=== PATIENT | male | born 1995 | race Caucasian/White ===

== ENCOUNTER 2016-12-12 10:45 | Emergency (ER) | payer OTHER ==
[~2016-12-12 10:45] MED LIST: LEVO200T4 PO; NORCOTAB PO; PERCOCET PO; VITA-112 PO; insulin pump
[2016-12-12] MEDS ORDERED: NAPROXEN 250 MG TAB As Ordered ONE (11:53)
--- NOTE | 2016-12-12 13:38 | EDDOCDS ---
Nurse's Notes [facility] Name: Miguel Felipe Age: 21 yrs Sex: Male : 1995 Arrival Date: 12/12/2016 Time: 10:45 Bed TR8 Private MD: Diagnosis: Unspecified sprain of left shoulder joint Presentation: 12/12 11:11 Presenting complaint: Patient states: Fell and injured left shoulder. Adult Sepsis rs3 Screening: The patient does not have new or worsening altered mentation. Patient's respiratory rate is less than 22. Systolic blood pressure is greater than 100. Patient has a qSOFA score of 0- Negative Sepsis Screen. Suicide/Homicide risk assessment- the patient denies having any suicidal and/or homicidal ideations and does not present with any other emotional, behavioral or mental health complaints. Status: Patient is not a vehicle service attendant or dependent. Transition of care: patient was not received from another setting of care. 11:11 Acuity: JO-ANN Level 4 rs3 11:11 Method Of Arrival: Walkin/Carried/Asstd rs3 Triage Assessment: 11:12 General: Appears in no apparent distress. Pain: Location: anterior aspect of left rs3 shoulder. HIV screening NA for this visit Offered previously. Historical: - Allergies: no known allergies; - Home Meds: 1. Novolog 100 unit/mL Sub-Q soln via insulin pump 2. levothyroxine 25 mcg Oral tab 1 tab once daily - PMHx: Diabetes - IDDM: controlled; Hypothyroidism; - PSHx: Knee surgery- Right; Ankle Surgery, Right; - Social history: Smoking status: Patient states was never smoker of tobacco. No barriers to communication noted, The patient speaks fluent Spanish. - Family history: Not pertinent. - : The pt / caregiver states he / she is not on anticoagulants. Home medication list is obtained from the patient. - Exposure Risk Screening:: None identified. Screenin:56 Screening information is obtained from the patient. Fall risk: No risks identified. jjr Assistance ADL's: requires no assistance with activities of daily living. Abuse/DV Screen: The patient / caregiver reports he/she is: not in a situation that causes fear, pain or injury. Nutritional screening: No deficits noted. Advance Directives: There is no active DNR order. home support is adequate. Assessment: 11:55 General: Appears in no apparent distress. Musculoskeletal: Reports pain in anterior jjr aspect of left shoulder. 13:23 General: Appears in no apparent distress, left shoulder pain aggravated by lifting left jjr arm, slight improvement in pain since arrival. 13:36 General: Appears in no apparent distress, comfortable, Behavior is appropriate for age, ms18 cooperative, pleasant. Pain: Pain currently is 2 out of 10 on a pain scale. Neurological: No deficits noted. Respiratory: No deficits noted. Derm: Skin is pink, warm & dry. Vital Signs: 10:46 BP 137 / 68; Pulse 88; Resp 16; Temp 96.6(O); Pulse Ox 99% on R/A; Weight 90.72 kg (R); elp Height 5 ft. 7 in. (170.18 cm) (R); Pain 7/10; 13:22 BP 132 / 77; Pulse 90; Resp 18; Temp 98.3(O); Pulse Ox 99% on R/A; Pain 5/10; jjr 10:46 Body Mass Index 31.32 (90.72 kg, 170.18 cm) [facility] Vitals: 10:46 Log In Time: December 12, 2016 at 10:40. p ED Course: 10:46 Patient visited by Destiny Beltran PCA. elp 10:46 Patient moved to Waiting elp 10:48 Patient visited by Destiny Beltran PCA. elp 10:48 Patient moved to Pre RCE elp 11:11 Triage Initiated rs3 11:12 Patient moved to Triage 3 rs3 11:42 Lillian Mckay PA-C is [facility]. ef1 11:42 Shabana Richardson MD is Attending Physician. ef1 11:42 Patient visited by Lillian Mckay PA-C. ef1 11:55 Patient moved to TR2 ms18 11:56 Patient visited by Ana Rojas RN. jjr 11:56 The patient / caregiver is instructed regarding the plan of care and ED course. jjr 12:00 [facility] Payment Agreement was scanned into [employer] and attached to record. mm15 12:35 Patient visited by Lillian Mckay PA-C. ef1 13:08 Patient visited by Lillian Mckay PA-C. ef1 13:11 Orthopaedics, [facility] is Referral Physician. ef1 13:16 Patient moved to PR1 ms18 13:23 No IV's were initiated during this patient's visit. No procedures done that require jjr assistance. 13:36 Patient moved to TR8 ms18 13:36 Patient has correct armband on for positive identification. Property sent home with ms18 patient. :Personal belongings accompany Pt. 13:36 Sling applied to right arm. Patient with positive distal sensation and brisk distal ms18 capillary refill after application. Administered Medications: 11:55 Drug: Naproxen 500 mg [naproxen 250 mg tablet (2 tabs)] Route: PO; jjr Order Results: There are currently no results for this order. Outcome: 13:11 Discharge ordered by Provider. ef1 13:23 Discharge Assessment: patient administered narcotics - no. The following High Risk jjr Discharge criteria are identified: None. Discharged to home ambulatory. Condition: stable. Discharge instructions given to patient, Instructed on discharge instructions, follow up and referral plans. medication usage, Demonstrated understanding of instructions, medications, Prescriptions given X 1. No special radiology studies were completed. Property sent home with patient. 13:37 Patient left the ED. ms18 Signatures: Ana Rojas, RN RN Lillian Mcnally, PA-C PA-C ef1 Dora Gaona RN RN rs3 Clarissa Mckee mm15 Destiny Beltran, BENJI BATCH ROLLER OPERATOR Francisca Pineda RN RN ms18 MTDD
--- NOTE | 2016-12-12 13:38 | EDDOCDS ---
Physician Documentation [facility] Name: Miguel Felipe Age: 21 yrs Sex: Male : 1995 Arrival Date: 12/12/2016 Time: 10:45 Bed TR8 Private MD: Disposition: 12/12/16 13:11 Discharged to Home/Self Care. Impression: Unspecified sprain of left shoulder joint. - Condition is Stable. - Discharge Instructions: Shoulder Sprain. - Prescriptions for Mobic 7.5 mg Oral Tablet - take 1 tablet by ORAL route once daily take with food; 20 tablet. - Medication Reconciliation, Local Pharmacy Hours, Work Release Form - 3 day form. - Follow up: [facility]; When: 1 - 2 days; Reason: Further diagnostic work-up, Recheck today's complaints, Continuance of care. Follow up: Emergency Department; Reason: Worsening of conditions. - Problem is new. - Symptoms have improved. Historical: - Allergies: no known allergies; - Home Meds: 1. Novolog 100 unit/mL Sub-Q soln via insulin pump 2. levothyroxine 25 mcg Oral tab 1 tab once daily - PMHx: Diabetes - IDDM: controlled; Hypothyroidism; - PSHx: Knee surgery- Right; Ankle Surgery, Right; - Social history: Smoking status: Patient states was never smoker of tobacco. No barriers to communication noted, The patient speaks fluent Belizean. - Family history: Not pertinent. - : The pt / caregiver states he / she is not on anticoagulants. Home medication list is obtained from the patient. - Exposure Risk Screening:: None identified. Vital Signs: 12/12 10:46 BP 137 / 68; Pulse 88; Resp 16; Temp 96.6(O); Pulse Ox 99% on R/A; Weight 90.72 kg / elp 200 lbs (R); Height 5 ft. 7 in. (170.18 cm) (R); Pain 7/10; 13:22 BP 132 / 77; Pulse 90; Resp 18; Temp 98.3(O); Pulse Ox 99% on R/A; Pain 5/10; jjr 10:46 Body Mass Index 31.32 (90.72 kg, 170.18 cm) elp Procedures: 13:08 Fracture care/splinting: Splint applied to anterior aspect of left shoulder using ef1 sling, applied by nurse. Examined by me, post splint application: neurovascular intact, 2+ distal pulses palpable, brisk capillary refill noted, Patient tolerated well. MDM: 11:51 Ice Pack ordered. ef1 11:51 Naproxen 500 mg PO once; administer with food or milk ordered. ef1 11:53 Shoulder, Complete Ordered. EDMS 11:58 Financial registration complete. mm15 12:00 [facility] Payment Agreement was scanned into [employer] and attached to record. mm15 13:08 Sling ordered. ef1 Administered Medications: 11:55 Drug: Naproxen 500 mg [naproxen 250 mg tablet (2 tabs)] Route: PO; jjr Signatures: Dispatcher [employer] EDMS Lillian Mckay PA-C PA-C ef1 Dora GaonaRN RN rs3 Clarissa Mckee mm15 Francisca Mesa RN RN ms18 Ana Rojas RN jjr The chart was reviewed and I authenticate all verbal orders and agree with the evaluation and treatment provided.Attachments: 12:00 [facility] Payment Agreement mm15 MTDD
--- NOTE | 2016-12-13 11:15 | REP ---
Left shoulder three views: There are no comparisons. The acromioclavicular glenohumeral articulations are unremarkable. Mineralization is normal. There is no fracture or dislocation. Impression: Negative left shoulder. Signed by Shadi Tate MD 12/12/2016 12:15 P
--- NOTE | 2016-12-14 14:37 | EDDOCDS ---
Physician Documentation [facility] Name: Miguel Felipe Age: 21 yrs Sex: Male : 1995 Arrival Date: 12/12/2016 Time: 10:45 Bed TR8 Private MD: Disposition: 12/12/16 13:11 Discharged to Home/Self Care. Impression: Unspecified sprain of left shoulder joint. - Condition is Stable. - Discharge Instructions: Shoulder Sprain. - Prescriptions for Mobic 7.5 mg Oral Tablet - take 1 tablet by ORAL route once daily take with food; 20 tablet. - Medication Reconciliation, Local Pharmacy Hours, Work Release Form - 3 day form. - Follow up: [facility]; When: 1 - 2 days; Reason: Further diagnostic work-up, Recheck today's complaints, Continuance of care. Follow up: Emergency Department; Reason: Worsening of conditions. - Problem is new. - Symptoms have improved. Historical: - Allergies: no known allergies; - Home Meds: 1. Novolog 100 unit/mL Sub-Q soln via insulin pump 2. levothyroxine 25 mcg Oral tab 1 tab once daily - PMHx: Diabetes - IDDM: controlled; Hypothyroidism; - PSHx: Knee surgery- Right; Ankle Surgery, Right; - Social history: Smoking status: Patient states was never smoker of tobacco. No barriers to communication noted, The patient speaks fluent Cymro. - Family history: Not pertinent. - : The pt / caregiver states he / she is not on anticoagulants. Home medication list is obtained from the patient. - Exposure Risk Screening:: None identified. Vital Signs: 12/12 10:46 BP 137 / 68; Pulse 88; Resp 16; Temp 96.6(O); Pulse Ox 99% on R/A; Weight 90.72 kg / elp 200 lbs (R); Height 5 ft. 7 in. (170.18 cm) (R); Pain 7/10; 13:22 BP 132 / 77; Pulse 90; Resp 18; Temp 98.3(O); Pulse Ox 99% on R/A; Pain 5/10; jjr 10:46 Body Mass Index 31.32 (90.72 kg, 170.18 cm) elp Procedures: 13:08 Fracture care/splinting: Splint applied to anterior aspect of left shoulder using ef1 sling, applied by nurse. Examined by me, post splint application: neurovascular intact, 2+ distal pulses palpable, brisk capillary refill noted, Patient tolerated well. MDM: 11:51 Ice Pack ordered. ef1 11:51 Naproxen 500 mg PO once; administer with food or milk ordered. ef1 11:53 Shoulder, Complete Ordered. EDMS 11:58 Financial registration complete. mm15 12:00 [facility] Payment Agreement was scanned into [employer] and attached to record. mm15 13:08 Sling ordered. ef1 21:52 T-Sheet-- Draft Copy was scanned into [employer] and attached to record. klr Administered Medications: 11:55 Drug: Naproxen 500 mg [naproxen 250 mg tablet (2 tabs)] Route: PO; jjr Signatures: Dispatcher [employer] EDMS Lillian Mckay, ANYI DE SANTIAGO ef1 Dora Gaona RN RN rs3 Clarissa Mckee mm15 Francisca Mesa RN RN ms18 Erika Flores klr Ana Rojas RN jjr The chart was reviewed and I authenticate all verbal orders and agree with the evaluation and treatment provided.Attachments: 12:00 [facility] Payment Agreement mm15 21:52 T-Sheet-- Draft Copy klr Chart Complete MTDD
--- NOTE | 2016-12-14 14:37 | EDDOCDS ---
Physician Documentation [facility] Name: Miguel Felipe Age: 21 yrs Sex: Male : 1995 Arrival Date: 12/12/2016 Time: 10:45 Bed TR8 Private MD: Disposition: 12/12/16 13:11 Discharged to Home/Self Care. Impression: Unspecified sprain of left shoulder joint. - Condition is Stable. - Discharge Instructions: Shoulder Sprain. - Prescriptions for Mobic 7.5 mg Oral Tablet - take 1 tablet by ORAL route once daily take with food; 20 tablet. - Medication Reconciliation, Local Pharmacy Hours, Work Release Form - 3 day form. - Follow up: [facility]; When: 1 - 2 days; Reason: Further diagnostic work-up, Recheck today's complaints, Continuance of care. Follow up: Emergency Department; Reason: Worsening of conditions. - Problem is new. - Symptoms have improved. Historical: - Allergies: no known allergies; - Home Meds: 1. Novolog 100 unit/mL Sub-Q soln via insulin pump 2. levothyroxine 25 mcg Oral tab 1 tab once daily - PMHx: Diabetes - IDDM: controlled; Hypothyroidism; - PSHx: Knee surgery- Right; Ankle Surgery, Right; - Social history: Smoking status: Patient states was never smoker of tobacco. No barriers to communication noted, The patient speaks fluent Argentine. - Family history: Not pertinent. - : The pt / caregiver states he / she is not on anticoagulants. Home medication list is obtained from the patient. - Exposure Risk Screening:: None identified. Vital Signs: 12/12 10:46 BP 137 / 68; Pulse 88; Resp 16; Temp 96.6(O); Pulse Ox 99% on R/A; Weight 90.72 kg / elp 200 lbs (R); Height 5 ft. 7 in. (170.18 cm) (R); Pain 7/10; 13:22 BP 132 / 77; Pulse 90; Resp 18; Temp 98.3(O); Pulse Ox 99% on R/A; Pain 5/10; jjr 10:46 Body Mass Index 31.32 (90.72 kg, 170.18 cm) elp Procedures: 13:08 Fracture care/splinting: Splint applied to anterior aspect of left shoulder using ef1 sling, applied by nurse. Examined by me, post splint application: neurovascular intact, 2+ distal pulses palpable, brisk capillary refill noted, Patient tolerated well. MDM: 11:51 Ice Pack ordered. ef1 11:51 Naproxen 500 mg PO once; administer with food or milk ordered. ef1 11:53 Shoulder, Complete Ordered. EDMS 11:58 Financial registration complete. mm15 12:00 [facility] Payment Agreement was scanned into [employer] and attached to record. mm15 13:08 Sling ordered. ef1 21:52 T-Sheet-- Draft Copy was scanned into [employer] and attached to record. klr Administered Medications: 11:55 Drug: Naproxen 500 mg [naproxen 250 mg tablet (2 tabs)] Route: PO; jjr Signatures: Dispatcher [employer] EDMS Lillian Mckay, ANYI DE SANTIAGO ef1 Dora Gaona RN RN rs3 Clarissa Mckee mm15 Francisca Mesa RN RN ms18 Erika Flores klr Ana Rojas RN jjr The chart was reviewed and I authenticate all verbal orders and agree with the evaluation and treatment provided.Attachments: 12:00 [facility] Payment Agreement mm15 21:52 T-Sheet-- Draft Copy klr Chart Complete MTDD
--- NOTE | 2016-12-14 14:37 | EDDOCDS ---
Nurse's Notes [facility] Name: Miguel Felipe Age: 21 yrs Sex: Male : 1995 Arrival Date: 12/12/2016 Time: 10:45 Bed TR8 Private MD: Diagnosis: Unspecified sprain of left shoulder joint Presentation: 12/12 11:11 Presenting complaint: Patient states: Fell and injured left shoulder. Adult Sepsis rs3 Screening: The patient does not have new or worsening altered mentation. Patient's respiratory rate is less than 22. Systolic blood pressure is greater than 100. Patient has a qSOFA score of 0- Negative Sepsis Screen. Suicide/Homicide risk assessment- the patient denies having any suicidal and/or homicidal ideations and does not present with any other emotional, behavioral or mental health complaints. Status: Patient is not a protective services social worker or dependent. Transition of care: patient was not received from another setting of care. 11:11 Acuity: JO-ANN Level 4 rs3 11:11 Method Of Arrival: Walkin/Carried/Asstd rs3 Triage Assessment: 11:12 General: Appears in no apparent distress. Pain: Location: anterior aspect of left rs3 shoulder. HIV screening NA for this visit Offered previously. Historical: - Allergies: no known allergies; - Home Meds: 1. Novolog 100 unit/mL Sub-Q soln via insulin pump 2. levothyroxine 25 mcg Oral tab 1 tab once daily - PMHx: Diabetes - IDDM: controlled; Hypothyroidism; - PSHx: Knee surgery- Right; Ankle Surgery, Right; - Social history: Smoking status: Patient states was never smoker of tobacco. No barriers to communication noted, The patient speaks fluent Indonesian. - Family history: Not pertinent. - : The pt / caregiver states he / she is not on anticoagulants. Home medication list is obtained from the patient. - Exposure Risk Screening:: None identified. Screenin:56 Screening information is obtained from the patient. Fall risk: No risks identified. jjr Assistance ADL's: requires no assistance with activities of daily living. Abuse/DV Screen: The patient / caregiver reports he/she is: not in a situation that causes fear, pain or injury. Nutritional screening: No deficits noted. Advance Directives: There is no active DNR order. home support is adequate. Assessment: 11:55 General: Appears in no apparent distress. Musculoskeletal: Reports pain in anterior jjr aspect of left shoulder. 13:23 General: Appears in no apparent distress, left shoulder pain aggravated by lifting left jjr arm, slight improvement in pain since arrival. 13:36 General: Appears in no apparent distress, comfortable, Behavior is appropriate for age, ms18 cooperative, pleasant. Pain: Pain currently is 2 out of 10 on a pain scale. Neurological: No deficits noted. Respiratory: No deficits noted. Derm: Skin is pink, warm & dry. Vital Signs: 10:46 BP 137 / 68; Pulse 88; Resp 16; Temp 96.6(O); Pulse Ox 99% on R/A; Weight 90.72 kg (R); elp Height 5 ft. 7 in. (170.18 cm) (R); Pain 7/10; 13:22 BP 132 / 77; Pulse 90; Resp 18; Temp 98.3(O); Pulse Ox 99% on R/A; Pain 5/10; jjr 10:46 Body Mass Index 31.32 (90.72 kg, 170.18 cm) [facility] Vitals: 10:46 Log In Time: December 12, 2016 at 10:40. p ED Course: 10:46 Patient visited by Destiny Beltran PCA. elp 10:46 Patient moved to Waiting elp 10:48 Patient visited by Destiny Beltran PCA. elp 10:48 Patient moved to Pre RCE elp 11:11 Triage Initiated rs3 11:12 Patient moved to Triage 3 rs3 11:42 Lillian Mckay PA-C is [facility]. ef1 11:42 Shabana Richardson MD is Attending Physician. ef1 11:42 Patient visited by Lillian Mckay PA-C. ef1 11:55 Patient moved to TR2 ms18 11:56 Patient visited by Ana Rojas RN. jjr 11:56 The patient / caregiver is instructed regarding the plan of care and ED course. jjr 12:00 [facility] Payment Agreement was scanned into [employer] and attached to record. mm15 12:35 Patient visited by Lillian Mckay PA-C. ef1 13:08 Patient visited by Lillian Mckay PA-C. ef1 13:11 Orthopaedics, [facility] is Referral Physician. ef1 13:16 Patient moved to PR1 25 ms18 13:23 No IV's were initiated during this patient's visit. No procedures done that require jjr assistance. 13:36 Patient moved to TR8 ms18 13:36 Patient has correct armband on for positive identification. Property sent home with ms18 patient. :Personal belongings accompany Pt. 13:36 Sling applied to right arm. Patient with positive distal sensation and brisk distal ms18 capillary refill after application. 21:52 T-Sheet-- Draft Copy was scanned into [employer] and attached to record. klr 12/13 11:20 Shoulder, Complete Returned. EDMS Administered Medications: 12/12 11:55 Drug: Naproxen 500 mg [naproxen 250 mg tablet (2 tabs)] Route: PO; jjr Order Results: Radiology Order: Shoulder, Complete Test: Shoulder, Complete REASON FOR EXAMINATION: Trauma; Left shoulder three views:; ; There are no comparisons.; ; The acromioclavicular glenohumeral articulations are unremarkable.; Mineralization is normal. There is no fracture or dislocation.; ; Impression:; ; Negative left shoulder.; ; ; Signed by; Shadi Tate MD 12/12/2016 12:15 P; Outcome: 13:11 Discharge ordered by Provider. ef1 13:23 Discharge Assessment: patient administered narcotics - no. The following High Risk jjr Discharge criteria are identified: None. Discharged to home ambulatory. Condition: stable. Discharge instructions given to patient, Instructed on discharge instructions, follow up and referral plans. medication usage, Demonstrated understanding of instructions, medications, Prescriptions given X 1. No special radiology studies were completed. Property sent home with patient. 13:37 Patient left the ED. ms18 Signatures: [facility] Ana Rojas RN RN jjLillian He PA-C PA-C ef1 Dora Gaona RN RN rs3 Clarissa Mckee mm15 Destiny Beltran, VETERINARY X RAY OPERATOR VETERINARY X RAY OPERATOR Francisca Pineda RN RN ms18 Erika Flores Chart Complete MTDD
== END 2016-12-12 13:37 | disposition home or self-care (01) ==
LOC: M ED 10:45
DX: S43.402A Unspecified sprain of left shoulder joint, initial encounter (principal); W19.XXXA Unspecified fall, initial encounter; Y92.89 Other specified places as the place of occurrence of the external cause; Y93.89 Activity, other specified; Y99.0 Civilian activity done for income or pay; E11.9 Type 2 diabetes mellitus without complications; E03.9 Hypothyroidism, unspecified; Z79.899 Other long term (current) drug therapy

== ENCOUNTER → 2017-01-05 | Outpatient (CLI) | payer OTHER ==
--- NOTE | 2017-01-05 08:51 | REP ---
MRI CERVICAL SPINE WITHOUT CONTRAST: HISTORY: Spondylolisthesis. COMPARISON: 01/14/2012. There is no disc bulge or herniation. The spinal canal and neural foramina are patent. The spinal cord is normal in signal intensity. There is no intradural extramedullary lesion. Normal signal intensity is present in the cervical vertebral bodies. IMPRESSION: There is no disc bulge or herniation. Signed by Wang Dean MD 01/05/2017 08:52 A
== END ==
LOC: M RAD 06:34
PROVIDERS: ATTEND Physician Assistant
DX: M43.12 Spondylolisthesis, cervical region (principal)

== ENCOUNTER 2017-11-27 19:18 | Emergency (ER) | payer OTHER ==
[2017-11-28] MEDS: KETOROLAC 60 MG/2 ML VIAL (J1885) IM (01:04)
[2017-11-28] MEDS: CYCLOBENZAPRINE 10 MG TAB PO (01:04)
== END 2017-11-28 01:27 | disposition home or self-care (01) ==
LOC: M ED 19:18
DX: S23.3XXA Sprain of ligaments of thoracic spine, initial encounter (principal); M62.830 Muscle spasm of back; W00.9XXA Unspecified fall due to ice and snow, initial encounter; Y92.89 Other specified places as the place of occurrence of the external cause; E11.9 Type 2 diabetes mellitus without complications; E03.9 Hypothyroidism, unspecified; Z79.899 Other long term (current) drug therapy; Z79.4 Long term (current) use of insulin; Z96.9 Presence of functional implant, unspecified; Z98.890 Other specified postprocedural states
CPT/HCPCS: J1885

== ENCOUNTER → 2018-03-01 | Outpatient (CLI) | payer OTHER ==
[~2018-03-01] MED LIST changes: +CONRAY-43 43% 50ML VIAL (Q9960) As Ordered; -LEVO200T4 PO; -NORCOTAB PO; -PERCOCET PO; +PROHANCE 279.3MG/ML 5ML VIAL (A9576) As Ordered; -VITA-112 PO; -insulin pump
== END ==
LOC: M RADPRO 06:26
DX: M65.812 Other synovitis and tenosynovitis, left shoulder (principal); Z96.41 Presence of insulin pump (external) (internal)
CPT/HCPCS: 23350

== ENCOUNTER → 2019-07-31 | Outpatient (REF) | payer OTHER ==
[~2019-07-31] MED LIST changes: -CONRAY-43 43% 50ML VIAL (Q9960) As Ordered; +CYCL10TA PO; +HYDR-3715 PO; +INSUHUMDS; +LEVO200T4 PO; +NAPR-837 PO; +PERCOCET PO; -PROHANCE 279.3MG/ML 5ML VIAL (A9576) As Ordered; +VITA-112 PO; +insulin pump
[2019-07-31 17:10] LABS: BLOOD UREA NITROGEN 8 MG/DL (7-18); CALCIUM LEVEL 9.2 MG/DL (8.5-10.1); CARBON DIOXIDE LEVEL 27 MEQ/L (21-32); CHLORIDE LEVEL 103 MEQ/L (98-107); CREATININE FOR GFR 1.15 MG/DL (0.70-1.30); GLOMERULAR FILTRATION RATE > 60.0 (>60); GLUCOSE, FASTING 280 MG/DL (70-100); POTASSIUM SERUM 4.5 MEQ/L (3.5-5.1); SODIUM LEVEL 138 MEQ/L (136-145)
[2019-07-31 17:25] LABS: HEMOGLOBIN 15.2 g/dl (13.5-17.5); MEAN CORPUSCULAR HEMOGLOBIN 28.6 pg (27.0-33.0); MEAN CORPUSCULAR VOLUME 86.5 fl (80.0-96.0); PLATELET COUNT, AUTOMATED 298 10^3/uL (150-450); RED BLOOD COUNT 5.32 10^6/uL (4.30-6.10); WHITE BLOOD COUNT 6.7 10^3/uL (4.0-10.0)
[2019-07-31 17:45] LABS: INR 0.98; PROTHROMBIN TIME 12.7 SECONDS (11.8-14.0)
[2019-07-31 17:46] LABS: PARTIAL THROMBOPLASTIN TIME 29.1 SECONDS (25.0-38.4)
== END ==
LOC: M SFHCPLAZ 15:24
PROVIDERS: ATTEND Physician Assistant
DX: Z01.818 Encounter for other preprocedural examination (principal)

== ENCOUNTER → 2020-06-26 | Outpatient (REF) | payer OTHER ==
[~2020-06-26] MED LIST changes: +CYCL-707 PO; -CYCL10TA PO
[2020-08-13 08:10] LABS: HEMOGLOBIN A1c 7.2 %
== END ==
LOC: M PLALAB 15:04
PROVIDERS: ATTEND Internal Medicine Endocrinology, Diabetes & Metabolism
DX: E10.65 Type 1 diabetes mellitus with hyperglycemia (principal)

== ENCOUNTER → 2021-12-01 | Outpatient (REF) | payer OTHER ==
[2021-12-01 18:36] LABS: MALB URINE SIEMENS 28.2 MG/L; MAU/CREAT RATIO 26.3 MCG/MG (0.0-30.0)
== END ==
LOC: M LAB REF 17:22
PROVIDERS: ATTEND Internal Medicine Endocrinology, Diabetes & Metabolism
DX: E10.65 Type 1 diabetes mellitus with hyperglycemia (principal)

== ENCOUNTER 2022-01-11 15:28 | Emergency (ER) | payer OTHER ==
[~2022-01-11] VITALS: Ht 167.6 cm; Wt 100.0 kg
[2022-01-11] MEDS ORDERED: LEVO150C (15:39)
[2022-01-11] MEDS ORDERED: KETOROLAC TROMETHAMINE 10 MG TAB PO ONE (17:40)
[2022-01-11 17:55] VITALS: BP 133/71
== END 2022-01-11 17:56 | disposition home or self-care (01) ==
LOC: M ED 15:28
DX: M25.461 Effusion, right knee (principal); E11.9 Type 2 diabetes mellitus without complications; E03.9 Hypothyroidism, unspecified; Z79.4 Long term (current) use of insulin; Z79.899 Other long term (current) drug therapy; Y92.9 Unspecified place or not applicable; Y93.9 Activity, unspecified; Y99.0 Civilian activity done for income or pay

== ENCOUNTER → 2022-06-07 | Outpatient (CLI) | payer BC ==
[~2022-06-07] MED LIST changes: +LEVO150C
[2022-06-07 14:27] LABS: CHOLESTEROL RISK RATIO 6.916 (<5); THYROID STIMULATING HORMONE 66.1 uIU/ML (0.358-3.740)
[2022-06-07 15:00] LABS: MALB URINE SIEMENS 51.2 MG/L; MAU/CREAT RATIO 43.3 MCG/MG (0.0-30.0)
== END ==
LOC: M PLALAB 11:40
PROVIDERS: ATTEND Internal Medicine Endocrinology, Diabetes & Metabolism
DX: E03.9 Hypothyroidism, unspecified (principal); E78.2 Mixed hyperlipidemia

== ENCOUNTER 2023-02-07 12:58 | Emergency (ER) | payer BC ==
[~2023-02-07] VITALS: Ht 167.6 cm; Wt 111.5 kg
[2023-02-07 12:59] VITALS: BP 143/84
== END 2023-02-07 13:44 | disposition left against medical advice (07) ==
LOC: M ED 12:58
DX: Z53.21 Procedure and treatment not carried out due to patient leaving prior to being seen by health care provider (principal)

== ENCOUNTER → 2024-01-26 | Outpatient (REF) | payer BC | LOC: M LAB REF 16:15 | PROVIDERS: ATTEND Physician Assistant | DX: J02.9 Acute pharyngitis, unspecified (principal) ==

== ENCOUNTER → 2024-08-20 | Outpatient (CLI) | payer BC ==
[~2024-08-20] MED LIST changes: +METHACHOLINE KIT (6 VIAL.NEB PREMIX) INH ONE
== END ==
LOC: M CARPUL 13:37
PROVIDERS: ATTEND Internal Medicine Pulmonary Disease
DX: R06.02 Shortness of breath (principal)
CPT/HCPCS: 94070; J7674